=== PATIENT | male | born 1935 | race Caucasian/White ===

== ENCOUNTER 2018-12-29 02:40 | Inpatient (IN) ==
[2018-12-29] MEDS ORDERED: ZOFRAN IV ONE (02:51)
[2018-12-29] MEDS ORDERED: MORPHINE IV ONE (02:51)
[2018-12-29] MEDS ORDERED: NS 1,000 ML IV ONE ×2 (02:51→05:06)
--- NOTE | 2018-12-29 03:44 | PROVIDER DOCUMENTATION ---
HPI-General Adult - General Chief Complaint: Abdominal Pain Stated Complaint: Abd pain Time Seen by Provider: 12/29/18 02:40 Source: patient Allergies/Adverse Reactions: Patient Allergies Allergy/AdvReac Type Severity Reaction Status Date / Time Penicillins Allergy Severe ANAPHYLAXIS Verified 12/29/18 03:31 Home Medications: Home Medication List Medication Instructions Recorded Confirmed Last Taken Type Insulin Aspart [Novolog] 12 unit SQ DIRECTED 10/13/16 12/29/18 10/13/16 08:00 History 12 UNIT Insulin Glargine [Lantus] 40 units SUBQ HS 10/13/16 12/29/18 10/12/16 21:00 History 40 UNITS Lisinopril [Zestril] 2.5 mg PO DAILY 10/13/16 12/29/18 10/13/16 08:00 History 2.5 MG Tamsulosin [Flomax] 0.4 mg PO DAILY 10/13/16 12/29/18 10/13/16 08:00 History 0.4 MG Sodium Bicarbonate 325 mg PO BID 12/29/18 12/29/18 Unknown History - History of Present Illness -Gen Adult Nature of Presenting Problems: Pt presents with ap n/v/d x 2 days, comes and goes, no radiation, ap is generalized, no prior, pt denies f/c, mir, cp, sob, cough, pt is lying in bed in no acute distress. Location of Pain/Injury: reports: abdomen Pain Radiation: reports: no radiation Quality of Pain: reports: sharp Severity: reports: mild Onset/Duration: reports: 2 days ago Timing: reports: still present Context/Activities at Onset: reports: none Modifying Factors: improves with: nothing Associated Symptoms: reports: diarrhea, nausea, vomiting Similar Symptoms Previously?: No Recently seen or treated by another doctor?: No Review of Systems - Adult - REVIEW OF SYSTEMS - ADULT Constitutional: reports: no symptoms reported Eyes: reports: no symptoms reported Ears, Nose, Mouth & Throat: reports: no symptoms reported Cardiovascular: reports: no symptoms reported Respiratory: reports: no symptoms reported Gastrointestinal: reports: see HPI Genitourinary: reports: no symptoms reported Musculoskeletal: reports: no symptoms reported Integumentary: reports: no symptoms reported Neurological: reports: no symptoms reported Psychiatric: reports: no symptoms reported Endocrine: reports: no symptoms reported Hematologic/Lymphatic: reports: no symptoms reported Allergic/Immunologic: reports: no symptoms reported All Other Systems: Reviewed and Negative Past History - Adult - PAST MEDICAL HISTORY-ADULT Review of Records: reports: Old Records Reviewed, Nursing Assessment Review, Medications Reviewed, Social history reviewed & non-contributory. Major Childhood Illnesses: reports: denies history Cardiovascular: reports: HTN, hyperlipidemia Respiratory: reports: denies history Gastrointestinal: reports: denies history Obstetrical/Gynecological: reports: denies history Genitourinary: reports: prostate cancer Musculoskeletal: reports: denies history Neurological: reports: CVA, TIA Psychiatric: reports: denies history Endocrine/Immune: reports: Diabetes Other Conditions: reports: denies history - PRIOR SURGERIES/PROCEDURES Surgical/Procedure History: reports: tonsillectomy, hernia repair - IMMUNIZATION STATUS Childhood Immunizations: See Nurse Assessment Flu Vaccine: See Nurse Assessment - FAMILY HISTORY Family History: reviewed, not pertinent Physical Exam-General - PHYSICAL EXAM-ADULT Initial Vital Signs Reviewed: Yes - CONSTITUTIONAL General Appearance: appears well - EYES Eyes: PERRL/EOMI - HEAD, EARS, NOSE, MOUTH & THROAT HENMT: normal ENT inspection - NECK Neck: normal inspection - RESPIRATORY Respiratory: lungs clear, no respiratory distress, no accessory muscle use - CARDIOVASCULAR Cardiovascular: regular rate, rhythm - GASTROINTESTINAL (ABDOMEN) Abdominal Exam: non tender, soft, no organomegaly - LYMPHATIC Lymphatic: no adenopathy - MUSCULOSKELETAL Back Exam: normal inspection Extremity: normal range of motion - SKIN Integumentary: normal color - NEUROLOGIC Neurologic: grossly normal - PSYCHIATRIC Psych/Mental Status: normal mood/affect Progress - PLAN OF CARE/RESULTS Progress/Plan/Lab Results: Vital Signs - 8 hr 12/29/18 02:48 Temperature 98.1 F Pulse Rate 74 Respiratory Rate 18 Blood Pressure 219/76 O2 Sat by Pulse Oximetry 100 Orders Category Date Time Status Nursing- Obtain EKG ONCE Care 12/29/18 02:[address] ABDOMEN/PELVIS W/O CONTRAST [CT] Stat Exams 12/29/18 02:50 Taken CBC WITH ELECTRONIC DIFF [HEME] Stat Lab 12/29/18 02:50 Ordered COMPREHENSIVE METABOLIC PANEL [CHEM] Stat Lab 12/29/18 02:50 Ordered LACTATE, PLASMA [CHEM] Stat Lab 12/29/18 02:50 Ordered LIPASE [CHEM] Stat Lab 12/29/18 02:50 Ordered TROPONIN T Stat Lab 12/29/18 02:50 Ordered 0.9% Sodium Chloride Inj [Ns] 1,000 ml Med 12/29/18 02:51 Active IV 999 mls/hr Morphine Med 12/29/18 02:51 Discontinued 4 mg IV NOW ONE Ondansetron [Zofran] Med 12/29/18 02:51 Discontinued 4 mg IV NOW ONE EKG [EKG] Stat Ther 12/29/18 02:50 Ordered Result Diagrams: 12/29/18 03:35 12/29/18 03:35 Departure - Departure Date of Disposition Decision: 12/29/18 Time of Disposition Decision: 05:19 DIAGNOSIS: Ileus, Hyperglycemia Disposition: ADMITTED INPATIENT Certified Medical Emergency: Emergent Condition: Stable Referrals and Follow-Ups: Ryder Martin [Primary Care Provider] - - Critical Care Note This patient required my direct & personal management of CC.: No Attestation - Physician/ BRITTANEY Attestation Patient care was provided by Advanced Practice Provider:: No The physician spent face to face time with patient:: Yes Advanced Practice Provider documentation review:: Supervising physician onsite and consulted in the evaluation and care of this patient. The physician did have a face to face encounter with the patient.
[2018-12-29 04:16] LABS: BASO# 0.01 X1000 (0.0-0.2); BASO% 0.1 % (0.0-0.8); EOS# 0.07 X1000 (0.0-0.7); EOS% 0.7 % (0.0-10.0); HEMATOCRIT 36.8 % (42.0-52.0); HEMOGLOBIN 12.4 g/dL (14.0-18.0); IMM GRAN# 0.03 X1000 (0.0-0.04); IMM GRAN% 0.3 % (0.0-0.5); LYMPH# 0.71 X1000 (1.2-3.4); LYMPH% 7.6 % (20.5-51.1); MCH 28.1 PG (27-31); MCHC 33.7 g/dL (33-37); MCV 83.3 FL (81-99); MONO# 0.52 X1000 (0.11-0.59); MONO% 5.6 % (1.7-9.3); MPV 11.7 FL (7.4-10.4); NEUT# 8.01 X1000 (1.4-6.5); NEUT% 85.7 % (42.2-75.2); PLT 125 X1000 (130-400); RBC 4.42 XMIL (4.7-6.1); RDW 12.7 % (11.5-14.5); WBC 9.35 X1000 (4.8-10.8)
[2018-12-29 05:03] LABS: ALB/GLOB RATIO 1.7; ALBUMIN 3.8 g/dL (3.5-5.0); CALCIUM 10.3 mg/dL (8.8-10.2); CREATININE 1.5 mg/dL (0.7-1.2); POTASSIUM 4.7 mmol/L (3.5-5.1); TOTAL BILIRUBIN 0.37 mg/dL (0.20-1.00)
[2018-12-29] MEDS ORDERED: HUMULIN R SUBQ ONE (05:06)
[2018-12-29] MEDS ORDERED: ZOFRAN IV PRN (05:39)
--- NOTE | 2018-12-29 05:41 | EKG Report ---
Test Performed on : 12/29/2018 03:36:00 AM Test Reason : ap Blood Pressure : / mmHG Vent. Rate : 074 BPM Atrial Rate : 074 BPM P-R Int : 148 ms QRS Dur : 090 ms QT Int : 394 ms P-R-T Axes : 049 -08 034 degrees QTc Int : 437 ms Normal sinus rhythm. Normal ECG When compared with ECG of 30-OCT-2015 17:39, ST no longer depressed in Inferior leads ST no longer depressed in Lateral leads Unconfirmed Result
--- NOTE | 2018-12-29 06:43 | HISTORY AND PHYSICAL ---
CHIEF COMPLAINT: Abdominal pain. HISTORY OF PRESENT ILLNESS: This is a very pleasant 83-year-old male who comes in with 2 days of abdominal pain with nausea and vomiting. He has also had incontinence of stool for the last week or so. He stated that the last couple of days, his abdomen has been hurting and a gnawing feeling. The last day, he has had some nausea. He has vomited a couple of times. He stated that he has started wearing diapers over the last week because he does not feel that he has that urge to stool but then he does have loose stool. CT of his abdomen and pelvis showed an ileus or an early partial small bowel obstruction. He was given morphine and fluids in the emergency room and he will be admitted for further evaluation and treatment. PAST MEDICAL HISTORY: 1. Diabetes mellitus, now insulin independent. 2. Hypertension. 3. BPH. 4. CKD 3. PREVIOUS SURGICAL HISTORY: 1. Tonsillectomy. 2. Hernia repair. 3. Carotid endarterectomy. FAMILY HISTORY: Father had coronary artery disease and is . SOCIAL HISTORY: Retired from the [employer]. Lives with his . No alcohol, tobacco or illicit drugs. ALLERGIES: Penicillin. MEDICATIONS: 1. NovoLog 12 units subcu as directed. 2. Lantus 40 units subcu at bedtime. 3. Lisinopril 2.5 mg p.o. daily. 4. Sodium bicarbonate 325 p.o. b.i.d. 5. Flomax 0.4 mg p.o. daily. REVIEW OF SYSTEMS: Fourteen point review of systems conducted with the patient and pertinent positives listed above in the HPI. All other systems reviewed and found to be negative. PHYSICAL EXAMINATION: VITAL SIGNS: Temp 98.1 degrees, pulse 76, respirations 18, blood pressure 183/90, oxygen saturation 98% on room air. GENERAL: Pleasant 83-year-old male lying in the ER stretcher, answers all questions appropriately. He is alert and oriented x3. HEENT: Head is atraumatic, normocephalic. Pupils equal, round and reactive to light. Extraocular eye movements intact. Sclerae anicteric. Conjunctivae pale. Oral mucosa is dry. NECK: Supple. No JVD. No thyromegaly. Trachea is midline. No cervical lymphadenopathy. CARDIAC: S1, S2 appreciated. No murmurs, gallops, rubs. LUNGS: Clear to auscultation bilaterally. No rhonchi, wheezes or rales. Symmetric rise and fall of respirations. ABDOMEN: Soft, nondistended. Diffusely tender. Bowel sounds hyperactive all 4 quadrants. No pulsatile masses or organomegaly. EXTREMITIES: No cyanosis, clubbing or edema. 2+ pedal pulses bilaterally. GENITOURINARY: No bladder distention. The patient voids. Otherwise deferred. NEUROLOGICAL: Alert and oriented x3. No focal motor deficit. Otherwise nonfocal examination. DIAGNOSTIC DATA: CT of the abdomen and pelvis shows ileus or early bowel obstruction. LABORATORY DATA: WBC 9.35, hemoglobin 12.4, hematocrit 36.8, platelet count 125,000. Sodium 136, potassium 4.7, chloride 102, carbon dioxide 23, BUN 31, creatinine 1.5, glucose 503. ASSESSMENT AND PLAN: 1. Ileus or early partial bowel obstruction. NPO. We will give IV fluids. Zofran for nausea. Hopeful that this will resolve with supportive care. 2. Diabetes mellitus, hyperglycemia. Check hemoglobin A1c. Fingerstick blood sugar with sliding scale insulin. 3. BPH. Continue Flomax. 4. CKD 3. Continue bicarb. Recheck laboratory data tomorrow morning. 5. Hypertension. Continue home medications. Further recommendations per patient's clinical course. Dictated by SABINA Cullen for Keely Goncalves MD cc: SABINA Cullen MD Alan Walker, MD
[2018-12-29] MEDS: HUMALOG SUBQ SCH ×4 (07:56→22:48)
--- NOTE | 2018-12-29 07:56 | Diag Imaging Result Doc PS360 ---
EXAM: CT ABDOMEN/PELVIS W/O CONTRAST INDICATION: ap, diffuse TECHNIQUE: This exam was performed using automated exposure control, adjustment of mA or kV according to patient size, and/or use of iterative reconstruction technique. COMPARISON: 04/09/2013 FINDINGS: There is mild groundglass opacity in the anterior right middle lobe that may represent a mild infiltrate. There is also mild subsegmental atelectasis and/or scarring at the lung bases. There are calcified granulomata in the liver and spleen. The liver and spleen are unremarkable, otherwise. The gallbladder appears normal. There are a few scattered pancreatic calcifications. Although nonspecific, this could represent mild chronic pancreatitis. There is no evidence of acute pancreatitis. The adrenal glands are unremarkable. There is a cyst at the lower pole of the left kidney. There are a few other smaller more hyperdense left renal nodules that probably represent cysts containing blood products or other protein but are technically nonspecific. Consider follow-up with renal ultrasound. The prostate is enlarged but appears stable. There are a few small urinary bladder diverticula. The urinary bladder is essentially unremarkable, otherwise. There is advanced sigmoid colonic diverticulosis, mainly involving the sigmoid colon. There is no evidence of diverticulitis. No focal bowel wall thickening or bowel obstruction is identified. There is liquid stool throughout the colon and fluid-filled loops of small bowel with very little distention, nonspecific. This could indicate ileus related to mild gastroenteritis. No focal inflammatory changes or free abdominal gas is appreciated. There is moderate to advanced aortoiliac atherosclerotic calcification. There is no evidence of acute osseous abnormality. IMPRESSION: 1.Fluid-filled loops of small bowel and colon without significant distention. Consider mild ileus, possibly from enteritis. There is no evidence of obstruction. 2.Uncomplicated diverticulosis coli. 3.Several very indents the nodules involving the left kidney that probably represent blood filled renal cysts. If warranted, follow-up with renal ultrasound may be helpful. 4.Other incidental/nonacute findings detailed above. Electronically signed by Reece Greer 12/29/2018 7:54 AM
[2018-12-29] MEDS ORDERED: MORPHINE IV PRN (08:18)
[2018-12-29] MEDS: NS 1,000 ML IV SCH (10:23)
[2018-12-29] MEDS: SODIUM BICARBONATE PO SCH ×2 (10:24→22:42)
[2018-12-29] MEDS: PRINIVIL PO SCH (10:25)
[2018-12-29] MEDS: FLOMAX PO SCH (10:25)
--- NOTE | 2018-12-29 16:23 | PROGRESS NOTE ---
DATE: 12/29/2018 SUBJECTIVE: Today Mr. Washington refers to be doing fairly okay. Has not had any more bowel movements and no abdominal pain. OBJECTIVE: Vital signs: Blood pressure is 147/39, pulse of 60, respiration is 18, temperature 97.8 degrees. General: Mr. Washington is an 83-year-old male. He is in bed. No distress. HEENT: Mucosa is pink and moist. Anicteric. Acyanotic. Neck: Supple. Chest: Clear to auscultation. Cardiovascular: Regular rate and rhythm. No murmurs. No rubs. No gallops. There is an old sternotomy scar on the anterior chest wall. He also has a pacemaker. Abdomen: Soft, nontender. Bowel sounds present. Extremities: No pedal edema. TIN WORKER: Patient is awake, alert, and oriented. LABORATORY DATA: There is mild normocytic anemia. Creatinine is 1.5 which seems to be the patient's baseline. Glucose was extremely high on admission. A1c was 14.0. A CT scan of the abdomen and pelvis did show fluid-filled loops of small bowel and colon with significant distention, consider mild ileus versus enteritis. No evidence of obstruction. Left kidney with a cyst. ASSESSMENT AND PLAN: 1. Abdominal discomfort on presentation secondary to enteritis. The patient seems to be feeling a whole lot better. We will sample the stool if he has any to rule out any possible infection. 2. Uncontrolled diabetes mellitus with an A1c of 14.0. The patient is currently on an insulin regimen. 3. Chronic kidney disease stage 3A. 4. Left kidney mass suspicious for cyst. There is recommendation to follow up with an ultrasound which will be done either later today or tomorrow morning. 5. Advanced sigmoid colon diverticulosis. Noted. 6. Normocytic anemia. We will check on the patient's iron status. cc: Sanjay Anguiano MD
--- NOTE | 2018-12-29 17:07 | Diag Imaging Result Doc PS360 ---
EXAM: US RENAL 2 (RETROPER) COMPLETE INDICATION: renal mass TECHNIQUE: COMPARISON: None. FINDINGS: There are a couple of simple appearing renal cysts bilaterally. The largest is on the left measuring up to 3.9 cm. No discrete solid renal mass can be identified by ultrasound. There is no hydronephrosis. The renal echotexture is probably slightly increased, which is a nonspecific indicator of medical renal disease. The right kidney measures 11.2 cm and the left kidney measures 12.6 cm in the greatest longitudinal axes. Right renal cortex measures 1.3 cm and the left renal cortex measures 1.1 cm in thickness. The urinary bladder is unremarkable. The prostate is enlarged measuring 5.7 x 6.0 x 6.0 cm. IMPRESSION: 1.Mildly echogenic kidneys, which is a nonspecific indicator of medical renal disease. 2.A couple of simple appearing renal cysts. No solid renal mass is identified sonographically. Electronically signed by Reece Greer 12/29/2018 5:05 PM
[2018-12-29] MEDS ORDERED: LANTUS INSULIN SUBQ SCH (21:00)
[2018-12-30] MEDS: NS 1,000 ML IV SCH ×2 (00:30→14:02)
[2018-12-30 07:15] LABS: CALCIUM 8.7 mg/dL (8.8-10.2); CREATININE 1.5 mg/dL (0.7-1.2); POTASSIUM 3.7 mmol/L (3.5-5.1)
[2018-12-30 07:40] VITALS: BP 130/47
[2018-12-30] MEDS: HUMALOG SUBQ SCH ×2 (07:43→11:57)
[2018-12-30] MEDS: PRINIVIL PO SCH (08:39)
[2018-12-30] MEDS: SODIUM BICARBONATE PO SCH (08:39)
[2018-12-30] MEDS: FLOMAX PO SCH (08:39)
--- NOTE | 2018-12-31 13:12 | DISCHARGE SUMMARY ---
ADMISSION DATE: 12/29/2018 DISCHARGE DATE: 12/30/2018 DISPOSITION: Home. FOLLOW-UP: 1. Dr. Ryder Martin. 2. Dr. Bueno in the [facility] system at [place]. CONSULTATION DURING THIS ADMISSION: None. IMAGING STUDIES OF SIGNIFICANCE: A CT scan of the abdomen and pelvis showed fluid-filled loops of small bowel and colon with significant distention. Consider mild ileus, possibly from enteritis. There was also uncomplicated diverticulosis coli. There were also blood-filled renal cysts. A renal ultrasound was done to follow up. Impression was: 1. Mildly echogenic kidneys with nonspecific indicator of medical renal disease. 2. A couple of simple apparent renal cysts. ADMISSION DIAGNOSIS: 1. Ileus or early partial bowel obstruction. 2. Diabetes mellitus with hyperglycemia. 3. BPH. 4. CKD stage 3. 5. Hypertension. 6. Diabetes. DIAGNOSIS AT THE TIME OF DISCHARGE: 1. Abdominal discomfort on presentation secondary to enteritis. This resolved. 2. Uncontrolled diabetes mellitus with an A1c of 14.0. Mr. Washington referred that he was on Trulicity from his [facility] medical team. 3. Chronic kidney disease stage IIIA. 4. Bilateral renal cysts. 5. Advanced sigmoid colon diverticulosis with no complications. 6. Normocytic anemia. 7. Hypertension. DISCHARGE MEDICATIONS: 1. Lantus 40 units subcutaneous at bedtime. 2. Lisinopril 2.5 p.o. daily. 3. Aspart 12 units subcutaneously as needed. 4. Tamsulosin 0.4 p.o. daily. 5. Bicarb 325 mg p.o. daily. PRESENTING COMPLAINT: Abdominal pain. HISTORY OF PRESENTING COMPLAINT: Mr. Washington is an 83-year-old gentleman who has history of insulin-dependent diabetes mellitus, hypertension, CKD, came to the emergency department because of abdominal pain, nausea, vomiting and some diarrhea. Upon presentation he was evaluated. A CT scan of the abdomen was done which showed an ileus or an early partial small bowel obstruction versus enteritis. He was admitted for further medical care. HOSPITAL COURSE: Mr. Washington was admitted to the medical floor. He was initially kept NPO, adequately fluid resuscitated, and started on insulin regimen for adequate glycemic control. His A1c came back as 14.0. Mr. Washington refers that he used to be on insulin, that he was at one point on 30 units of glargine twice per day. This was changed to 40 units once per day and then lately he was just [facility]. Unfortunately, at home, his glucose has always been in the 300s, 400s, sometimes 500. Here in the hospital, his A1c was found to be ridiculously high. He has been started on insulin regimen and he seems to be a lot better controlled. Mr. Washington's abdominal pain also got improved. He was started on GI soft diet and then advanced to a regular low-salt diet which he tolerated well. He has not had any more bowel movement during the hospital course. We are not even able to do the stool studies. His creatinine has been fairly stable throughout the hospital course. This morning, Mr. Washington refers to be feeling a lot better. We think he is stable for discharge. VITAL SIGNS: Blood pressure is 130/47, pulse of 60, respiration is 18, temperature 97.7 degrees. He is currently asymptomatic. There was not any family member at the bedside at the time of the encounter. Mr. Washington has been advised to follow up with his medical team. We have also notified him that at least with the A1c of 14.0, he needs to be on insulin until he goes back to his team and have them look into his outpatient care for the diabetes. We did say that he probably will need an lead pressman as well. All the discharge instructions have been discussed with him and he voiced understanding. TIME SPENT FOR DISCHARGE: 34 minutes. cc: MD Ryder Hagen MD
== END 2018-12-30 15:17 | disposition home or self-care (01) | DRG 392 ==
LOC: SUPCPDRO → ED 02:40 → SUATTDRO 07:21 → 4N 07:21
PROVIDERS: ATTEND Internal Medicine